=== PATIENT | female | born 1980 | race Caucasian/White ===

== ENCOUNTER 2016-06-05 09:52 | Outpatient (CLI) | payer OTHER ==
--- NOTE | 2016-06-05 12:24 | DIAGNOSTIC IMAGING REPORT ---
PROCEDURE: US COMPLETE PELVIC W/TRANSVAG INDICATION: PELVIC PAIN TECHNIQUE: Transabdominal and endovaginal aguayo scale and color Doppler sonographic images of the female pelvis were obtained. COMPARISON: Pelvic ultrasound 11/28/2013 FINDINGS: TRANSABDOMINAL SCANS: The uterus is of normal size 7.2 x 4.9 x 5.0 cm Kidneys are normal. In the right lobe of the liver two angiomas were noted. One measures 2 cm and the other measures 1.1 cm. TRANSVAGINAL SCANS: The uterus is retroflexed. Myometrium is normal. The endometrium measures 11.4 mm. Right ovary is normal measuring 3.1 The left ovary is normal measuring 3.4. There is a 1.3 cm follicle on the left ovary. IMPRESSION: 1. Normal uterus and ovaries and kidneys.
[2016-06-27] MEDS ORDERED: VALIUM2 MG PO (12:05)
[2016-06-27] MEDS ORDERED: SEROQUEL25 MG PO (12:05)
[2016-06-27] MEDS ORDERED: IBUPROFEN600 MG PO (12:06)
== END 2016-06-05 23:00 ==
LOC: US SRH 09:52
DX: R10.2 Pelvic and perineal pain (principal)

== ENCOUNTER 2016-06-29 09:15 | Outpatient (CLI) | payer OTHER ==
[~2016-06-29 09:15] MED LIST: IBUPROFEN600 MG PO; SEROQUEL25 MG PO; VALIUM2 MG PO
== END 2016-06-29 23:00 ==
LOC: LAB SRH 09:15
DX: N80.9 Endometriosis, unspecified (principal)
CPT/HCPCS: 90001; 90047; 90074; 90155; 90364; 91004; 92863; 95059; 98428